=== PATIENT | male | born 1960 | race Caucasian/White ===

== ENCOUNTER 2019-07-08 17:56 | Emergency (ER) | payer SELFPAY ==
[~2019-07-08] VITALS: Ht 180.3 cm; Wt 72.6 kg
[2019-07-08 17:56] VITALS: BP 124/65
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
[2019-07-08 19:23] VITALS: BP 122/60
== END 2019-07-08 19:23 ==
LOC: MED 17:56
DX: S00.81XA Abrasion of other part of head, initial encounter (principal); M25.561 Pain in right knee; M25.562 Pain in left knee; W51.XXXA Accidental striking against or bumped into by another person, initial encounter; Y93.89 Activity, other specified; Y92.89 Other specified places as the place of occurrence of the external cause; Y99.8 Other external cause status
CPT/HCPCS: 99283